=== PATIENT | female | born 1955 | race Caucasian/White ===

== ENCOUNTER 2023-06-14 11:54 | Outpatient (CLI) | payer MEDICARE, SELFPAY ==
--- NOTE | ~2023-06-14 | DEXA_ITS ---
Bone Density Report Name: AUGUSTIN CHARLES Age: 67 Sex: Female Ethnicity: White Date of : 1955 Indication: postmenopausal; screening for osteoporosis; height loss; prior fracture; hysterectomy; Referring Provider: ABRAHAMRYLEY Study: Bone densitometry was performed. Exam Date: June 14, 2023 Accession number: [id number] Bone Density: Region BMD T-score Z-score Classification AP Spine(L1-L4) 0.906 -1.3 0.8 Osteopenia Femoral Neck (Left) 0.713 -1.2 0.5 Osteopenia Total Hip (Left) 0.876 -0.5 0.9 Normal Femoral Neck (Right) 0.829 -0.2 1.6 Normal Total Hip (Right) 0.879 -0.5 1.0 Normal Femoral Neck Mean 0.771 -0.7 1.1 Normal Total Hip Mean 0.878 -0.5 1.0 Normal World Health Organization criteria for BMD impression classify patients as: Normal (T-score at or above -1.0), Osteopenia (T-score between -1.0 and -2.5), or Osteoporosis (T-score at or below -2.5). 10-year Fracture Risk(1): Major Osteoporotic Fracture 15% Hip Fracture 1.6% Reported Risk Factors: [place] (), Neck BMD=0.713, BMI=26.8, previous fracture (1) FRAX(R) Version 3.08. Fracture probability calculated for an untreated patient. Fracture probability may be lower if the patient has received treatment. Clinical Information Provided by Patient: Has had a low trauma fracture Has used the following medications: Fosamax (i.e. alendronate), Vitamin D, Calcium, multi Has the following medical conditions: Hysterectomy Patient maximum height was 69 Menopause Age: 46 No regular weight bearing exercise Drinks caffeinated beverages Onset of menses at age 11 Number of children 2 Impression: The patient has low bone mass, based on the Total Spine T-score. The patient has risk factors, including: previous fracture. Discussion: BONE DENSITY IS LOW AT ONE OR MORE SKELETAL SITES. This patient's lowest T-score is low at one or more skeletal sites. It meets the World Health Organization's (WHO) criteria for ?low bone mass? (T-score between -1.0 and -2.5). The patient's 10-year risk of fracture as calculated by FRAX is less than the threshold where pharmacological therapy is recommended by the National Osteoporosis Foundation (NOF). However, all treatment decisions require clinical judgment and consideration of individual patient factors, including patient preferences, comorbidities, previous drug use, risk factors not captured in the FRAX model (e.g., frailty, falls, vitamin D deficiency, increased bone turnover, interval significant decline in bone density) and possible under or overestimation of fracture risk by FRAX. The patient should follow a healthful lifestyle (good nutrition with adequate calcium and vitamin D, and appropriate weight-bearing exercise). Follow-Up: Consider repeating this study in 2 to 3 years to reassess this patient's status, or sooner if there is some
--- NOTE | ~2023-06-14 | MM_ITS ---
EXAMINATION: MM screening argenis BI w conor HISTORY: Screening mammogram TECHNIQUE: Craniocaudal and mediolateral oblique 3-D tomosynthesis images were obtained and synthetic 2-D images were generated. CAD analysis was submitted and interpreted. COMPARISON: No prior mammogram is available for comparison at this institution. BREAST PARENCHYMAL COMPOSITION: There are scattered areas of fibroglandular density. FINDINGS: No suspicious mass, calcification, or architectural distortion are identified in either jesse ast to suggest malignancy. IMPRESSION: 1. No mammographic evidence of malignancy. 2. Recommend routine screening mammography in one year. BI-RADS Category 1: Negative Reviewed, dictated and finalized at location A. ORT ATTENDANT
== END 2023-06-14 11:55 | disposition home or self-care (01) ==
LOC: CHSIMG 12:09
PROVIDERS: PCP Hospitalist; Visit Provider Hospitalist
DX: Z12.31 Encounter for screening mammogram for malignant neoplasm of breast (principal); Z78.0 Asymptomatic menopausal state; M85.89 Other specified disorders of bone density and structure, multiple sites
CPT/HCPCS: 77063; 77067; 77080

== ENCOUNTER 2024-08-06 08:52 | Outpatient (CLI) | payer MEDICARE, SELFPAY ==
--- NOTE | ~2024-08-06 | MM_ITS ---
EXAMINATION: MM screening argenis BI w conor HISTORY: Screening mammogram TECHNIQUE: Craniocaudal and mediolateral oblique 3-D tomosynthesis images were obtained and synthetic 2-D images were generated. CAD analysis was submitted and interpreted. COMPARISON: 06/14/2023 BREAST PARENCHYMAL COMPOSITION:Not Dense. There are scattered areas of fibroglandular density. FINDINGS: No suspicious mass, calcification, or architectural distortion are identified in either jesse ast to suggest malignancy. There has been no suspicious interval change. IMPRESSION: No mammographic evidence of malignancy. Recommend routine screening mammography in one year. BI-RADS Category 1: Negative Reviewed, dictated and finalized at location . L GRINDER
--- OUTSIDE RECORDS SUMMARY | 2024-08-06 09:29 | XMS_ITS | Clinical Summary ---
Author Organization [facility] Address [address] [place] [place] [address] Phone Care Team Providers Care Dish Person Name Role Phone Sheron Daniel MD Primary Care Prov ider Allergies No known active allergies Medications Cholecalciferol (VITAMIN D3) 1000 UNIT/SPRAY Liquid Take by mouth. 05/20/2012 Active simvastatin (ZOCOR) 10 MG Tablet Take by mouth. 01/31/2017 Active ipratropium (ATROVENT) 0.03 % Solution by Nasal route. 09/18/2016 Active CALCIUM PO Take by mouth. 03/29/2011 Active Active Problems No known active problems Family History Medical History Relation Name Comments Breast Cancer Maternal Grandmother Ovarian Cancer Mother 20's Relation Name Status Comments Maternal Grandmother Mother 20's Social History Tobacco Use Types Packs/Day Years Used Date Smoking Tobacco: Never Smokeless Tobacco: Never Comments No Sex and Gender Information Value Date Recorded Sex Assigned at Not on file Legal Sex Female 3:21 AM FIBERGLASS BOAT MAKER Gender Identity Not on file Sexual Orientation Not on file Last Filed Vital Signs Vital Sign Reading Time Taken Comments Blood Pressure 144/70 08/16/2017 3:04 PM CDT Pulse 75 08/16/2017 3:04 PM CDT Temperature 36.7 C (98.1 F) 08/11/2017 4:04 PM CDT Respiratory Rate 16 08/11/2017 4:04 PM CDT Oxygen Saturation 98% 08/11/2017 4:04 PM CDT Inhaled Oxygen Concentration - - Weight 72.6 kg (160 lb) 08/16/2017 3:04 PM CDT Height 175.3 cm (5' 9 ) 08/16/2017 3:04 PM CDT Body Mass Index 23.63 08/16/2017 3:04 PM CDT Plan of Treatment Health Maintenance Due Date Last Done Comments Hepatitis C Virus (HCV) Screening 1955 TdaP Immunization 1955 Colonoscopy 1998 Colorectal Cancer Screening 1998 Cologuard 11/05/2003 Immunochemical Fecal Occult Blood 11/05/2003 Influenza Immunization (#1) 02/02/202403/04, 03/18/2021, 03/15/2020, Additional history exists SARS-COV-2 Immunization ( season) 2024 06/04/2021, 09/12/2020, 08/12/2020 Respiratory Syncytial Virus (RSV) Immunization (Adult) (1 - 1-dose 75+ series) 2028 Hepatitis B Immunization Completed 013, 10/28/2012, 09/25/2012 Zoster Immunization Completed 11/03/2018, 9 Pneumococcal Immunization (50+ years) Completed 04/25/2020, 04/17/2019 Pneumococcal Immunization Combined Discontinued 04/25/2020, 04/17/2019 DEXA Bone Density Discontinued 06/14/2020, , 01/12/2016, Additional history exists Mammogram Discontinued 06/12/2022, 02/2021, 05/05/2020, Additional history exists Meningococcal Immunization (ACWY) Aged Out No longer eligible based on patient's age to complete this topic Rotavirus Immunization Aged Out No lo nger eligible based on patient's age to complete this topic Procedures Procedure Name Priority Date/Time Associated Diagnosis Comments [facility] SCREENING BILATERAL DIGITAL W CAD W JESU Routine 06/12/2022 1:44 PM FIBERGLASS BOAT MAKER Visit for screening mammogram [facility] BONE DENSITOMETRY AXIAL SKELETON Routine 02/10/2018 10:35 AM CDT Asymptomatic age-related postmenopausal state Vitamin D deficiency from Last 3 Months or Most Recently Relevant to Health Maintenance Results * [facility] SCREENING BILATERAL DIGITAL W CAD W JESU (06/12/2022 1:44 PM FIBERGLASS BOAT MAKER) Anatomical Region Laterality Modality breast Bilateral Mammography 06/12/2022 1:44 PM FIBERGLASS BOAT MAKER Impressions 06/13/2022 7:17 AM FIBERGLASS BOAT MAKER IMPRESSION: 1. No mammographic evidence of malignancy. RECOMMENDATIONS: 1. Screening mammogram in one year. BI-RADS: 1 Negative. Narrative 06/13/2022 7:17 AM FIBERGLASS BOAT MAKER DICTATING PHYSICIAN: Naz Eckert M.D. EXAM: [facility] SCREENING BILATERAL DIGITAL W CAD W JESU. DATE: 06/12/2022 1:44 PM. COMPARISON: Breast imaging dated 05/05/2020, 04/16/2019, 03/31/2018, 03/12/2017, 02/20/2016. HISTORY: Routine screening mammogram. TECHNIQUE: Bilateral mammographic views were obtained. This study was also evaluated with a Computer Aided Detection (CAD) system. 3-D multiplanar mammographic projections were obtained (tomosynthesis). FINDINGS: There are scattered areas of fibroglandular density. No suspicious mammographic finding. No suspicious interval change. Procedure Note Naz Eckert MD - 06/13/2022 DICTATING PHYSICIAN: Naz Eckert M.D. EXAM: [facility] SCREENING BILATERAL DIGITAL W CAD W JESU. DATE: 06/12/2022 1:44 PM. COMPARISON: Breast imaging dated 05/05/2020, 04/16/2019, 03/31/2018,03/12/2017, 02/20/2016. HISTORY: Routine screening mammogram. TECHNIQUE: Bilateral mammographic views were obtained. This study wasalso evaluated with a Computer Aided Detection (CAD) system. 3-Dmultiplanar mammographic projections were obtained (tomosynthesis). FINDINGS: There are scattered areas of fibroglandular density. Nosuspicious mammographic finding. No suspicious interval change. IMPRESSION: 1. No mammographic evidence of malignancy. RECOMMENDATIONS: 1. Screening mammogram in one year. BI-RADS: 1 Negative. us Sheron Daniel MD IMG MAMMO ORDERABL ES Final Result * [facility] BONE DENSITOMETRY AXIAL SKELETON (02/10/2018 10:35 AM CDT) Anatomical Region Laterality Modality BODY N/A Other 02/10/2018 10:3 5 AM CDT Impressions 02/10/2018 10:58 AM CDT IMPRESSION: Persistent osteopenia. Data predicts an increased risk of future fractures. FRAX indicates the 10 year risk of a major osteoporotic fracture is 8.3% and the 10 year risk of a hip fracture is 0.7%. A followup DEXA exam in 2 years may be of benefit. Narrative 02/10/2018 10:58 AM CDT DICTATING PHYSICIAN: Harshil Lockhart M.D. EXAM: [facility] BONE DENSITOMETRY AXIAL SKELETON. DATE: 02/10/2018 10:35 AM. COMPARISON: 09/24/2013 CLINICAL HISTORY: Postmenopausal female, history of osteopenia, follow-up. FINDINGS: Bone mineral density (BMD) was assessed with dual-energy x-ray absorptiometry (DEXA). The average BMD of the lumbar spine (L1-L4) for this exam is 0.887 g/cm2. This indicates osteopenia with a T-score of -1.5. The BMD of the lumbar spine has decreased compared to the prior exam. The average BMD of the left hip (the femoral neck area) for this exam is 0.696 g/cm2. This indicates osteopenia with a T-score of -1.4. The BMD of the left femoral neck has not significantly changed compared to the prior exam. . Procedure Note Harshil Lockhart MD - 02/10/2018 DICTATING PHYSICIAN: Harshil Lockhart M.D. EXAM: [facility] BONE DENSITOMETRY AXIAL SKELETON. DATE: 02/10/2018 10:35 AM. COMPARISON: 09/24/2013 CLINICAL HISTORY: Postmenopausal female, history of osteopenia, follow-up. FINDINGS: Bone mineral density (BMD) was assessed with dual-energy x-rayabsorptiometry (DEXA). The average BMD of the lumbar spine (L1-L4) for this exam is 0.887 g/cm2.This indicates osteopenia with a T-score of -1.5. The BMD of the lumbarspine has decreased compared to the prior exam. The average BMD of the left hip (the femoral neck area) for this exam is0.696 g/cm2. This indicates osteopenia with a T-score of -1.4. The BMD ofthe left femoral neck has not significantly changed compared to the priorexam. . IMPRESSION: Persistent osteopenia. Data predicts an increased risk of future fractures. FRAX indicates the 10 year risk of a major osteoporotic fracture is 8.3%and the 10 year risk of a hip fracture is 0.7%. A followup DEXA exam in 2 years may be of benefit. Cindy Burns MD IMG DEXA ORDERABLES Corinna l Result from Last 3 Months or Most Recently Relevant to Health Maintenance Insurance MEDICARE [facility] Care Teams Dish Person Relationship Specialty Start Date End Date Sheron Daniel MD [address] [address] PCP - General Internal Medicine 04/16/19
--- OUTSIDE RECORDS SUMMARY | 2024-08-06 09:29 | XMS_ITS | Clinical Summary ---
Author Organization [facility] [address] Address [address] [place] [id number] Care Team Providers Care Catering Staff Member Name Role Phone Kevin Horan MD Primary Care Provider [phone] Allergies No known active allergies Medications cholecalciferol, vitamin D3, 1,000 unit/spray spray,suspension Take 1 tablet by mouth daily 05/20/2012 Active cyanocobalamin (Vitamin B-12) 100 mcg tablet Take 1 tablet (100 mcg total) by mouth daily Active multivitamin (MULTIPLE VITAMINS ORAL) Take 1 tablet by mouth daily Active calcium carbonate/vitami n D3 (CALCIUM 600 + D,3, ORAL) Take 1 tablet by mouth daily 03/29/2011 Active vit C,S-Uy-oorlk-lut ein-zeaxan 250-90-40-1 mg capsule Take by mouth Active atorvastatin (LIPITOR) 10 mg tablet Take 1 tablet (10 mg total) by mouth daily 90 tablet 3 09/17/2023 Active Active Problems Problem Noted Date Diagnosed Date IGT (impaired glucose tolerance) 05/06/2023 Assessment & Plan (06/11/2023 2:46 PM APPLICATION SPECIALIST): Stable, well controlled; no evidence of diabetes; will continue with regular hemoglobin A1c checks Osteopenia of multiple sites 05/06/2023 Assessment & Plan (06/11/2023 2:46 PM APPLICATION SPECIALIST): Stable, history of fractures, continue vitamin-D and calcium supplementation Update DEXA scan Dyslipidemia 05/06/2023 Assessment & Plan (06/11/2023 2:46 PM APPLICATION SPECIALIST): Stable, well controlled; repeat LDL; continue atorvastatin 10 mg daily AMD (age-related macular degeneration), louis l 04/30/2023 Assessment & Plan (04/30/2023 11:40 AM APPLICATION SPECIALIST): Nonexudative. Former smoker Discussed close monitoring, continue AREDS and [place] Okay to f/u with optometry Age-related nuclear cataract of both eyes 2022 Assessment & Plan (06/11/2023 2:45 PM APPLICATION SPECIALIST): Also complimented by macular degeneration; patient follows with ophthalmology for evaluation and management; continue with AREDS multivitamin Assessment & Plan (04/30/2023 11:40 AM APPLICATION SPECIALIST): NVS Continue to monitor Immunizations Immunization Administration Dates Next Due Hep A, Adult 05/05/2013,09/25/2012 Hep A, Unspecified 05/05/2013,09/25/2012 Hep B Vaccine 05/05/2013,10/28/2012,09/25/2012 Hep B, Unspecified 05/05/2013,10/28/2012, 013 Influenza, Quad, Adjuvantate d, Intramuscular 03/25/2022,03/18/2021 Influenza, Quadrivalent, Hig h Dose, Preservative Free, Intrr 03/12/2023 Influenza, Quadrivalent, Spl it, Preservative Free, Intramuscular 03/18/2021,03/15/2020,03/27/2019 Influenza, Trivalent, IM (MDV) 03/30/2012 Influenza, Unspecified 03/12/2023,03/25/2022, MMR 09/29/2018 OPV 09/25/2012 Pneumococcal Conjugate PCV 13 04/17/2019 Pneumococcal Polysaccharide PPV23 04/25/2020 Polio, Unspecified 09/25/2012 Typhoid Live 09/25/2012 Yellow Fever 09/25/2012 ZOSTER Recombinant 11/03/2018,07/30/2018 Surgical History Surgery Date Site/Laterality Comments HYSTERECTOMY 06/03/2002 - 06/02/2003 total hyst Medical History Medical History Date Comments Cataract Macular degeneration Family History Medical History Relation Name Comments Hypertension Father Leukemia Father Ovarian cancer Mother Relation Name Status Comments Father Mother Social History Tobacco Use Types Packs/Day Years Used Date Smoking Tobacco: Former Cigarettes 0.3 5 1 977 - 1981 Tobacco Cessation:Counseling Given: Not Answered AUDIT-C Answer Date Recorded Q1: How often do you have a drink containing alc ohol? 2-3 times a week 05/06/2023 Q2: How many drinks containi ng alcohol do you have on a typical day when you are drinking? 1 or 2 05/06/2023 Q3: How often do you have si x or more drinks on one occasion? Never 05/06/2023 PHQ-2 Answer Date Recorded PHQ-2 Total Score (If total score is 3 or more points, staff should administer the PHQ-9) 0 05/06/2023 Comments Unknown Sex and Gender Information Value Date Recorded Sex Assigned at Not on file Legal Sex Female 8:20 AM CDT Gender Identity Not on file Sexual Orientation Not on file Obstetrics History Last Filed Vital Signs Vital Sign Reading Time Taken Comments Blood Pressure 118/72 01/10/2024 8:16 AM CDT Pulse 78 01/10/2024 8:16 AM CDT Temperature 36.8 C (98.2 F) 01/10/2024 8:16 AM CDT Respiratory Rate 20 01/10/2024 8:16 AM CDT Oxygen Saturation 98% 01/10/2024 8:16 AM CDT Inhaled Oxygen Concentration - - Weight 77.6 kg (171 lb) 01/10/2024 8:16 AM CDT Height 175.3 cm (5' 9 ) 01/10/2024 8:16 AM CDT Body Mass Index 25.25 01/10/2024 8:16 AM CDT Plan of Treatment Health Maintenance Due Date Last Done Comments Colon Cancer Screening-Colonoscopy 1955 Hepatitis C Screening 1955 DTaP/Tdap/Td Vaccine (1 - Tdap) 1964 Well Visit 65+ 2018 Covid-19 Vaccine (4 - 2023-2 5 season) 2024 06/04/2021, 09/12/2020, 08/12/2020 Influenza Vaccine (#1) 2024 3, 03/12/2023, 03/25/2022, Additional history exists Depression Screening 05/06/2024 05/06/2023, 05/06/20 Fall Risk Assessment 05/06/2024 05/06/2023 Breast Cancer Screening-Mammogram 06/14/2024 06/14/2023, 06/12/2022, 06/12/2022, Additional history exists Osteoporosis Screening-Bone Density Scan 06/14/2025 06/14/2023, 06/14/2020, 06/14/2020, Additional history exists Hepatitis B Screening Completed 05/05/2013 , 05/05/2013, 10/28/2012, Additional history exists Zoster Vaccine Completed 11/03/2018, 07/30/2018 Pneumococcal vaccine 65+ Completed 04/25/2020, 04/03 Procedures Procedure Name Priority Date/Time Associated Diagnosis Comments DEXA AXIAL SKELETON BONE DENSITY 1 OR MORE SITES Schedule Routine, Read Routine (OP Routine) 06/14/2023 Post-menopausal Osteopenia of multiple sites SCREENING MAMMOGRAM Schedule Routine, Read Routine (OP Routine) 06/14/2023 from Last 3 Months or Most Recently Relevant to Health Maintenance Results * Screening Mammogram (06/14/2023) Anatomical Region Laterality Modality Breast N/A Mammography Historical Provider MD [facility] MAMMO PROCEDURES Corinna l Result * Dexa Axial Skeleton Bone Density 1 or 2 Site (06/14/2023) Anatomical Region Laterality Modality Body N/A Radiographic Sonia ging Kevin Horan MD IMC[facility] DXA PROCEDURES Final Result from Last 3 Months or Most Recently Relevant to Health Maintenance Insurance [employer] MEDICARE MEDICARE [facility] MEDICARE [facility] Care Teams Catering Staff Member Relationship Specialty Start Date End Date Kevin Horan [place] [address] PCP - General Family Medicine 04/29/23
--- OUTSIDE RECORDS SUMMARY | 2024-08-06 09:29 | XMS_ITS | Referral Summary ---
Author Organization [facility] [place] [address] Address [address] [place] [id number] Care Team Providers Care Disassembler Product Name Role Phone Kevin Horan MD Primary Care Provider [phone] [phone] Allergies No known active allergies Medications cholecalciferol, [...] tablet by mouth daily 03/29/2011 Active vit C,V-Gn-zhydz-lut ein-zeaxan 250-90-40-1 mg capsule Take by mouth Active atorvastatin (LIPITOR) 10 mg tablet Take 1 tablet (10 mg total) by mouth daily 90 tablet 3 09/17/2023 Active Active Problems Problem Noted Date Diagnosed Date IGT (impaired glucose tolerance) 05/06/2023 Assessment & Plan (06/11/2023 2:46 PM SENIOR MOBILE APPLICATION DEVELOPER): Stable, well controlled; no evidence of diabetes; will continue with regular hemoglobin A1c checks Osteopenia of multiple sites 05/06/2023 Assessment & Plan (06/11/2023 2:46 PM SENIOR MOBILE APPLICATION DEVELOPER): Stable, history of fractures, continue vitamin-D and calcium supplementation Update DEXA scan Dyslipidemia 05/06/2023 Assessment & Plan (06/11/2023 2:46 PM SENIOR MOBILE APPLICATION DEVELOPER): Stable, well controlled; repeat LDL; continue atorvastatin 10 mg daily AMD (age-related macular degeneration), louis l 04/30/2023 Assessment & Plan (04/30/2023 11:40 AM SENIOR MOBILE APPLICATION DEVELOPER): Nonexudative. Former smoker Discussed close monitoring, continue AREDS and [place] Okay to f/u with optometry Age-related nuclear cataract of both eyes 2022 Assessment & Plan (06/11/2023 2:45 PM SENIOR MOBILE APPLICATION DEVELOPER): Also complimented by macular degeneration; patient follows with ophthalmology for evaluation and management; continue with AREDS multivitamin Assessment & Plan (04/30/2023 11:40 AM SENIOR MOBILE APPLICATION DEVELOPER): NVS Continue to monitor Immunizations Immunization Administration [...] 09/25/2012 Yellow Fever 09/25/2012 ZOSTER Recombinant 11/03/2018,07/30/2018 Social History Tobacco Use Types Packs/Day Years Used Date Smoking Tobacco: Former Cigarettes 0.3 5 1 977 - 1982 Tobacco Cessation:Counseling Given: Not Answered AUDIT-C Answer [...] 01/10/2024 8:16 AM CDT Plan of Treatment Not on file Procedures Procedure Name Priority Date/Time Associated Diagnosis [...] N/A Radiographic Sonia ging Kevin Horan MD IMG DXA PROCEDURES Final Result from Last 3 Months or Most Recently Relevant to Health Maintenance Insurance [facility] MEDICARE MEDICARE [facility] MEDICARE [facility] Care Teams Disassembler Product Relationship Specialty Start Date End Date Kevin Horan [place] [address] PCP - General Family Medicine 04/29/23
== END 2024-08-06 08:53 | disposition home or self-care (01) ==
PROVIDERS: PCP Family Medicine; Visit Provider Family Medicine
DX: Z12.31 Encounter for screening mammogram for malignant neoplasm of breast (principal)
CPT/HCPCS: 77063; 77067